=== PATIENT | female | born 2000 | race Caucasian/White ===

== ENCOUNTER 2022-08-01 22:52 | Emergency (ER) | payer OTHER ==
[2022-08-01 23:50] LABS: Bilirubin Negative (Negative); Blood, Urine Negative (Negative); Clarity Clear (Clear); Glucose, Urine (Dipstick) Normal (Negative); Ketone, Urine 40 mg/dL (Negative); Leukocyte Negative Leu/uL (Negative); Nitrite Negative (Negative); Protein, Urine (Dipstick) 20 mg/dL (Neg-Trace); Specific Gravity, Urine 1.027 (1.002-1.036); Urobilinogen Normal mg/dL (Less than 2)
[2022-08-02] MEDS ORDERED: Ketorolac Tromethamine 30 MG/ML VIAL ONE
[2022-08-02 00:50] LABS: Pregnancy Test - Urine (BHCG) Negative (Negative); Pregu Control Background? CLEAR/WHITE (CLR/WHITE); Pregu Control Bar Appear? YES (CONTROL BAR)
[2022-08-02 00:51] LABS: Specific Gravity 1.027 (1.002-1.036)
== END 2022-08-02 01:04 | disposition home or self-care (01) ==
LOC: ERS 22:52
DX: B34.9 Viral infection, unspecified (principal)
CPT/HCPCS: 81003; 81025; 87086; 96372; 99283; J1885